=== PATIENT | male | born 1950 | race Caucasian/White ===

== ENCOUNTER 2021-02-05 16:56 | Emergency (ER) | payer BC, SELFPAY ==
--- NOTE | 2021-02-05 17:15 | ECG_ITS ---
Test Reason : REPEAT Blood Pressure : / mmHG Vent. Rate : 079 BPM Atrial Rate : 079 BPM P-R Int : 154 ms QRS Dur : 088 ms QT Int : 384 ms P-R-T Axes : 092 -02 085 degrees QTc Int : 440 ms Sinus rhythm with occasional Premature ventricular complexes and Premature atrial complexes Otherwise normal ECG When compared with ECG of 05-FEB-2021 19:51, Premature ventricular complexes are now Present Referred By: Quincy Peter Electronically Signed By:JEANIE COFFMAN MD
[2021-02-05 17:33] VITALS: BP 144/75; PULSE 58; RESP 18; O2SAT 97; BMI 21.5
[2021-02-05 18:32] LABS: MANUAL DIFF FLAG NO
[2021-02-05 18:33] LABS: Basophils Percent Auto 0.2 % (0-2); Eosinophils Percent Auto 0.1 % (0-4); Hematocrit 44.4 % (42-52); Hemoglobin 15.3 g/dl (14.0-18.0); Imm Gran Abs Auto 0.03 X10*3/uL (0.00-0.03); Imm Gran Pct Auto 0.3 % (0.0-0.4); Lymphocytes Absolute Auto 0.9 X10*3/uL (1.2-4.9); Lymphocytes Percent Auto 9.1 % (20-40); Mean Corpuscular HGB Conc 34.5 g/dl (31.0-36.0); Mean Corpuscular Hemoglobin 31.6 pg (27.0-33.0); Mean Corpuscular Volume 91.7 fL (80-98); Mean Platelet Volume 9.4 fL (9.4-12.4); Monocytes Absolute Auto 0.6 X10*3/uL (0.1-1.2); Monocytes Percent Auto 6.4 % (2-11); Neutrophils Absolute Auto 7.9 X10*3/uL (2.0-8.3); Neutrophils Percent Auto 83.9 % (45-73); Platelet Count 229 X10*3/uL (160-400); Red Blood Count 4.84 X10*6/uL (4.60-5.80); Red Cell Distribution Width 11.8 % (11.0-16.0); White Blood Count 9.4 X10*3/uL (4.8-10.8)
--- NOTE | 2021-02-05 18:38 | ED.CHESTPAIN ---
HPI - Chest Pain General Chief Complaint: Chest Pain Stated Complaint: chest pain Time Seen by Provider: 02/05/21 18:38 Source: patient Mode of arrival: ambulatory Limitations: no limitations History of Present Illness HPI narrative: Patient no significant coronary artery disease plays tennis to 3 times a week was playing tennis today since noon for 2-1/2 hours at the at the end of the game pt. noticed mid chest heaviness without any radiation no shortness of breath no palpitation pain feels like pressure Patient never had similar pain in the past. No diaphoresis no nausea no vomiting no shortness of breath no cough no abdominal pain patient continued to have cresendo-decresendo pain while at home before coming to ER Related Data Allergies Allergy/AdvReac Type Severity Reaction Status Date / Time No Known Allergies Allergy Verified 02/05/21 19:08 Review of Systems Review of Systems: Constitutional : No Weight loss, No Fever, No Chills ENT/Mouth : No sore throat, No Rhinorrhea Eyes: No Eye Pain, No Swelling Cardiovascular : ++Chest Pain, no palpitations Respiratory : No Cough, No Sputum, no shortness of breath Gastrointestinal : no Nausea, No Vomiting, No Diarrhea, No abdominal Pain, no black stools Genitourinary : No Dysuria, No Urinary Frequency Musculoskeletal : No joint pain, No Myalgias, No Joint Swelling Skin : No Skin Lesions, No rash Neuro : No Weakness, No Numbness, No Dizziness, No Headache Psych : No Anxiety/Panic, No Depression Heme/Lymph: No Bruising, No Lymphadenopathy Endocrine : No Polyuria, No Polydipsia All other systems reviewed and are negative PMFSH Social History Social History Advance Directives: No Advance Directives Information Provided: No Physical Exam Vital Signs: Vital Signs: Last Vital Signs Temp 98.4 F 02/05/21 22:24 Pulse 75 02/05/21 22:24 Resp 12 02/05/21 22:24 BP 100/73 02/05/21 22:24 Pulse Ox 97 02/05/21 22:24 Body Mass Index 21.5 Appearance: Alert. Oriented X3. No acute distress. Eyes: PERRLA, No Nystagmus ENT: Pharynx normal. Oral Mucosa moist Neck: Normal inspection. Neck supple. CVS: Normal heart rate and rhythm. Pulses normal. Respiratory: No respiratory distress. Equal air entry bilateral, no wheezing/rales/rhonchi Abdomen: Soft and nontender. Bowel sounds are present, no mass palpable, no CVA tenderness Skin: Skin warm and dry. Normal skin color. Normal skin turgor. Extremities: No lower extremity edema. No calf tenderness Neuro: Oriented X 3. MDM - Chest Pain MDM Narrative Medical decision making narrative: Patient with left-sided chest pain typical for ACS after playing tennis when patient arrived patient has pain 8/10 responded to nitroglycerin and nitropaste still feeling the pain but comfortable pain level is 2/10. Patient is on heparin drip received aspirin case discussed with Dr. Beltrán would like to keep the patient at [facility] as initial high sensitive troponin was 337 without any EKG changes. 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 Beltrán accepted the patient at [facility] for possible cardiac catheterization in a.m. patient asymptomatic for COVID PCR test was sent. Patient also had slightly elevated creatinine to 1.43 patient denies any prior history of renal insufficiency patient received 1 L of normal saline while in the ER Lab Data Attestation: I reviewed the patient's lab results. Result diagrams: 02/05/21 18:26 02/05/21 18:26 Labs: Lab Results 02/05/21 02/05/21 02/05/21 Range/Units 18:26 18:26 18:26 WBC 9.4 (4.8-10.8) X10*3/uL RBC 4.84 (4.60-5.80) X10*6/uL Hgb 15.3 (14.0-18.0) g/dl Hct 44.4 (42-52) % MCV 91.7 (80-98) fL MCH 31.6 (27.0-33.0) pg MCHC 34.5 (31.0-36.0) g/dl RDW 11.8 (11.0-16.0) % Plt Count 229 (160-400) X10*3/uL MPV 9.4 (9.4-12.4) fL Immature Gran % (Auto) 0.3 (0.0-0.4) % Neut % (Auto) 83.9 H (45-73) % Lymph % (Auto) 9.1 L (20-40) % [place] % (Auto) 6.4 (2-11) % Eos % (Auto) 0.1 (0-4) % Baso % (Auto) 0.2 (0-2) % Lymph # (Auto) 0.9 L (1.2-4.9) X10*3/uL [place] # (Auto) 0.6 (0.1-1.2) X10*3/uL Eos # (Auto) 0.0 (0.0-0.4) X10*3/uL Baso # (Auto) 0.0 (0.0-0.2) X10*3/uL Abs Immat Gran (auto) 0.03 (0.00-0.03) X10*3/uL Absolute Neuts (auto) 7.9 (2.0-8.3) X10*3/uL Absolute Nucleated RBC 0.000 (0.0-0.012) X10*3/uL Nucleated RBC % (auto) 0.0 (0.0-0.2) /100WBC PT (9.9-13.0) SEC INR (0.9-1.1) APTT (24.1-38.0) SEC Sodium 143 (135-145) mmol/L Potassium 4.9 (3.3-5.1) mmol/L Chloride 105 (96-108) mmol/L Carbon Dioxide 28 (22-29) mmol/L Anion Gap 15 (12-20) BUN 24 H (9-16) mg/dL Creatinine 1.43 H (0.5-1.4) mg/dL Estim Creat Clear Calc 47.5 Estimated GFR 49 Random Glucose 119 H (60-115) mg/dL Calcium 10.2 (8.4-10.2) mg/dL Troponin I High Sens 337.3 H* (<3.5-35.0) ng/L 02/05/21 02/05/21 Range/Units 19:45 22:13 WBC (4.8-10.8) X10*3/uL RBC (4.60-5.80) X10*6/uL Hgb (14.0-18.0) g/dl Hct (42-52) % MCV (80-98) fL MCH (27.0-33.0) pg MCHC (31.0-36.0) g/dl RDW (11.0-16.0) % Plt Count (160-400) X10*3/uL MPV (9.4-12.4) fL Immature Gran % (Auto) (0.0-0.4) % Neut % (Auto) (45-73) % Lymph % (Auto) (20-40) % [place] % (Auto) (2-11) % Eos % (Auto) (0-4) % Baso % (Auto) (0-2) % Lymph # (Auto) (1.2-4.9) X10*3/uL [place] # (Auto) (0.1-1.2) X10*3/uL Eos # (Auto) (0.0-0.4) X10*3/uL Baso # (Auto) (0.0-0.2) X10*3/uL Abs Immat Gran (auto) (0.00-0.03) X10*3/uL Absolute Neuts (auto) (2.0-8.3) X10*3/uL Absolute Nucleated RBC (0.0-0.012) X10*3/uL Nucleated RBC % (auto) (0.0-0.2) /100WBC PT 11.4 (9.9-13.0) SEC INR 1.0 (0.9-1.1) APTT 33.8 (24.1-38.0) SEC Sodium (135-145) mmol/L Potassium (3.3-5.1) mmol/L Chloride (96-108) mmol/L Carbon Dioxide (22-29) mmol/L Anion Gap (12-20) BUN (9-16) mg/dL Creatinine (0.5-1.4) mg/dL Estim Creat Clear Calc Estimated GFR Random Glucose (60-115) mg/dL Calcium (8.4-10.2) mg/dL Troponin I High Sens 6884.7 H* D (<3.5-35.0) ng/L ECG Data ECG #1: Attestation: I personally reviewed and interpreted this ECG as follows: Interpretation: Sinus rhythm heart rate 74 beats per minute with PACs normal axis no acute ST T wave changes no acute ischemia ECG #2: Attestation: I personally reviewed and interpreted this ECG as follows: Interpretation: Normal sinus rhythm heart rate 79 beats per minute poor progression of R-wave anterior leads unifocal PVCs and PACs no acute ST elevation no significant change from the previous EKG Critical Care Time Critical Care Time Critical Care Time: Yes Total Critical Care Time: 40 Attestation: I spent 40 minutes of critical care, with interventions, assessments, speaking to patient and water resource consultant Discharge Plan Discharge Clinical Impression: Non-STEMI (non-ST elevated myocardial infarction) Patient Disposition: [facility] Hospital Transfer Details: [facility] under Dr. Beltrán
[2021-02-05] MEDS: Aspirin 81 MG TAB.CHEW 324 MG PO (19:15)
[2021-02-05 19:17] LABS: Anion Gap 15 (12-20); Blood Urea Nitrogen 24 mg/dL (9-16); Calcium 10.2 mg/dL (8.4-10.2); Carbon Dioxide 28 mmol/L (22-29); Chloride 105 mmol/L (96-108); Creatinine Clr Calc Pharmacy 47.5; Estimated Glomerular Filt Rate 49; Glucose Random 119 mg/dL (60-115); Potassium 4.9 mmol/L (3.3-5.1); Sodium 143 mmol/L (135-145)
--- NOTE | 2021-02-05 19:28 | ECG_ITS ---
Test Reason : CHEST PAIN Blood Pressure : / mmHG Vent. Rate : 074 BPM Atrial Rate : 074 BPM P-R Int : 148 ms QRS Dur : 094 ms QT Int : 404 ms P-R-T Axes : 084 -02 077 degrees QTc Int : 448 ms Sinus rhythm with Premature atrial complexes Otherwise normal ECG No previous ECGs available Referred By: Quincy Peter Electronically Signed By:Jose Beltrán
[2021-02-05 19:29] LABS: Troponin-I High Sensitivity 337.3 ng/L (<3.5-35.0)
[2021-02-05] MEDS: Heparin Sodium,Porcine 5,000 UNIT/ML VIAL 5000 UNIT IVPUSH (19:30)
--- NOTE | 2021-02-05 19:47 | PC.NURSE ---
PT TO ROOM, CHG INTO GOWN, LABS DRAWN TO LAB. EKG OBTAINED TO . PT MEDICATED PER EMAR. DR. OLIVER REQUESTING PT TO GET BOLUS AT THIS TIME.
[2021-02-05] MEDS: Nitroglycerin 2 % Oint 1 GM Packet 1 INCH TRANSDERMA (19:51)
[2021-02-05 19:56] LABS: Prothrombin Time 11.4 SEC (9.9-13.0)
[2021-02-05 19:59] LABS: Partial Thromboplastin Time 33.8 SEC (24.1-38.0)
[2021-02-05 20:12] VITALS: BP 128/79; PULSE 69; RESP 22; TEMP 36.7; O2SAT 97
[2021-02-05] MEDS: Heparin Sodium,Porcine/1/2NS 25,000 UNIT/250 ML IV.SOLN 9.53 UNIT IVCONT (21:53)
[2021-02-05 21:55] VITALS: BP 137/82; PULSE 92
[2021-02-05] MEDS: Nitroglycerin 0.4 MG TAB.SUBL SUBLINGUAL (21:55)
[2021-02-05] MEDS: 0.9 % Sodium Chloride 1,000 ML 999 ML IVCONT (21:59)
[2021-02-05 22:24] VITALS: BP 100/73; PULSE 75; RESP 12; TEMP 36.9; O2SAT 97
--- NOTE | 2021-02-05 22:48 | PC.NURSE ---
REPEAT LABS DRAWN AND REPEAT EKG OBTAINED TO PT STATES MY PAIN IS BETTER . PT REMAINS ON MONITOR, VS OBTAINED. WILL CONTINUE TO MONITOR PT.
--- NOTE | 2021-02-05 22:53 | ECG_ITS ---
Test Reason : CHEST PAIN Blood Pressure : / mmHG Vent. Rate : 061 BPM Atrial Rate : 055 BPM P-R Int : 148 ms QRS Dur : 088 ms QT Int : 404 ms P-R-T Axes : 082 009 083 degrees QTc Int : 406 ms Sinus bradycardia with Premature atrial complexes Nonspecific ST and T wave abnormality Abnormal ECG When compared with ECG of 05-FEB-2021 17:01, No significant change was found Referred By: Quincy Peter Electronically Signed By:JEANIE COFFMAN MD
--- NOTE | 2021-02-05 23:52 | PC.NURSE ---
NITRO PASTE REMOVED. AWAITING FOR NITRO DRIP TO GET VERIFIED BY PHARMACY.
[2021-02-05 23:59] LABS: PTT Heparin Drip 123.6 SEC (53-77.9)
[2021-02-06 00:16] VITALS: BP 123/84; PULSE 101
[2021-02-06] MEDS: Nitroglycerin/D5W 100 MG/250 ML INFUS..BTL IVCONT (00:16)
[2021-02-06 00:22] LABS: Influenza A PCR NEGATIVE (Negative); Influenza B PCR NEGATIVE (Negative); Resp Syncy Virus RNA Qual PCR NEGATIVE (Negative); SARS COV2 PCR INHOUSE NEGATIVE (Negative)
== END 2021-02-06 00:45 | disposition short-term general hospital (02) ==
PROVIDERS: Emergency Provider Internal Medicine; PCP Internal Medicine
DX: I21.4 Non-ST elevation (NSTEMI) myocardial infarction (principal); I10 Essential (primary) hypertension; B19.20 Unspecified viral hepatitis C without hepatic coma
CPT/HCPCS: 0241U; 36415; 80048; 84484; 85025; 85610; 85730; 93005; 96365; 96366; 96367; 96375; 99285; 99291

== ENCOUNTER → 2021-02-20 13:44 | Outpatient (BNVA) | payer BC, SELFPAY | PROVIDERS: PCP Internal Medicine; Visit Provider Nurse Practitioner Family ==

== ENCOUNTER → 2021-03-07 06:02 | Outpatient (REF) | payer MEDICARE, SELFPAY ==
--- NOTE | 2021-03-07 07:30 | CA_ITS ---
Transthoracic Echocardiogram Patient (Last, First, Middle): Marcos Blancas, Gender: Male Date of : 1950 Age: 70 Procedure Date: 03/07/2021 Procedure Type: Transthoracic Echocardiogram Location: OP Height: 180.34 cm Weight: 68.04 kg BSA: 1.87 m2 Heart Rate: bpm BP: 94 / 48 mmHg Assistant Distribution Manager: RASHEEDA Referring MD: Eli Muse LACQUER DIPPING MACHINE OPERATORKe Symptoms: ASHD,NON-ST ELEVATION (NSTEMI) MD Study Quality: Good ECG Rhythm: Sinus Conclusions: - The left ventricular systolic function is low normal. The visually estimated ejection fraction is between 50-55%. - The apical lateral and mid anterolateral segments are akinetic. Findings Left Ventricle Normal left ventricular cavity size. There is normal left ventricular wall thickness. The left ventricular systolic function is low normal. The visually estimated ejection fraction is between 50-55%. Diastolic function is normal for age. Wall Motion Rest Echo Findings The apical lateral and mid anterolateral segments are akinetic. Prior Study Comparison No prior study available for comparison. Measurements 2D Linear Measurements RVIDd: 2.63 RVIDd Index: 1.41 IVSd: 0.86 0.6-0.9/0.6-1.0 cm LVIDd: 5.16 3.9-5.3/4.2-5.9 cm LVIDd Index: 2.76 2.4-3.2/2.2-3.1 cm/m2 LVIDs: 3.52 2.0-3.6 cm LVPWd: 1.03 0.7-1.1 cm LV Mass: 221.69 67-162/88-224 g LV Mass Index: 118.55 43-95/49-115 g/m2 2D Systolic Function EF 4C: 49.40 >55% EF 2C: 73.90 >55% EF BiP: 63.90 >55% Mitral Valve MV Pk E: 0.57 MV PK A: 0.36 MV Decel Time: 343.00 E/A: 1.60 E'Lateral: 16.40 E'Medial: 8.49 E/E' Med: 6.70 E/E' Lat: 3.50 Diastolic Function MV Pk E: 0.57 MV Pk A: 0.36 E/A: 1.60 E'Medial: 8.49 E/E' Med: 6.70 E' Laterial: 16.40 E/E' Lat: 3.50 Updated in Other Vendor System with Status of Final Andrews Whaley MD electronically signed on 03/07/2021 12:41:31 PM with status of Final
[2021-03-07 08:38] LABS: Alanine Aminotransferase 21 U/L (0-40); Anion Gap 13 (12-20); Aspartate Amino Transferase 21 U/L (5-37); Blood Urea Nitrogen 18 mg/dL (9-16); Carbon Dioxide 28 mmol/L (22-29); Chloride 106 mmol/L (96-108); Cholesterol 129 mg/dL; Estimated Glomerular Filt Rate 48; Glucose Random 90 mg/dL (60-115); HDL Cholesterol 52 mg/dL; LDL Cholesterol Calculated 62 mg/dl; Potassium 4.4 mmol/L (3.3-5.1); Sodium 143 mmol/L (135-145); Triglycerides 75 mg/dL
== END ==
LOC: HO.CARD 06:02
PROVIDERS: Visit Provider Nurse Practitioner Family
DX: I21.4 Non-ST elevation (NSTEMI) myocardial infarction (principal); I25.10 Atherosclerotic heart disease of native coronary artery without angina pectoris; E78.5 Hyperlipidemia, unspecified; Z95.5 Presence of coronary angioplasty implant and graft
CPT/HCPCS: 36415; 80048; 80061; 84450; 84460; 93308

== ENCOUNTER → 2021-04-06 14:26 | Outpatient (BNVA) | payer MEDICARE, SELFPAY | PROVIDERS: Visit Provider Internal Medicine Cardiovascular Disease | DX: I25.10 Atherosclerotic heart disease of native coronary artery without angina pectoris (principal); Z95.5 Presence of coronary angioplasty implant and graft | CPT/HCPCS: 99212 ==

== ENCOUNTER → 2021-08-17 09:33 | Outpatient (BNVA) | payer MEDICARE, SELFPAY | PROVIDERS: Visit Provider Internal Medicine Cardiovascular Disease | DX: I25.10 Atherosclerotic heart disease of native coronary artery without angina pectoris (principal); E78.5 Hyperlipidemia, unspecified; I25.2 Old myocardial infarction | CPT/HCPCS: 99212 ==

== ENCOUNTER → 2022-02-26 13:48 | Outpatient (BNVA) | payer MEDICARE, SELFPAY | PROVIDERS: Visit Provider Internal Medicine Cardiovascular Disease | DX: I25.10 Atherosclerotic heart disease of native coronary artery without angina pectoris (principal); I21.4 Non-ST elevation (NSTEMI) myocardial infarction; I45.19 Other right bundle-branch block; E78.5 Hyperlipidemia, unspecified; F41.9 Anxiety disorder, unspecified; Z95.5 Presence of coronary angioplasty implant and graft; Z98.890 Other specified postprocedural states | CPT/HCPCS: 93005; 99212 ==

== ENCOUNTER → 2022-09-20 10:02 | Outpatient (BNVA) | payer MEDICARE, SELFPAY | PROVIDERS: Visit Provider Internal Medicine Cardiovascular Disease | DX: I20.8 Other forms of angina pectoris (principal); L30.9 Dermatitis, unspecified; E78.5 Hyperlipidemia, unspecified | CPT/HCPCS: 93005; 99212 ==

== ENCOUNTER 2023-03-11 10:11 | Outpatient (AMB) | payer MEDICARE, SELFPAY ==
--- NOTE | 2023-03-11 10:18 | MHC.OFFVIS ---
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 He had NSTEMI and had ramus PCI previously. His ejection fraction after PCI was 35-40%. Repeat echocardiography showing EF of 50 55%. He has been on medications without any symptoms. Physically active without any exertional symptoms. He has 50% LAD and circumflex disease but has been clinically stable at this point. Blood pressure control is good. He has been exercising and walking [place] without any symptoms. No bleeding issues but has been noticing some bruising on the body.. Taking medications regularly. 03/11/2023: He returns for follow-up. He has been doing well. He has stop the ticagrelor and his bruising has improved. No chest discomfort shortness of breath. Exercising and playing tennis regularly. [facility] Medical History (Updated 09/20/22 @ 12:46 by Jose Beltrán MD) Hyperlipidemia CAD (coronary artery disease) Surgical History History of cardiac cath Family History Father CAD (coronary artery disease) Mother Heart attack Brother No problems noted. Social History Alcohol intake: former Patient Tobacco Use Status: Never used Tobacco Review of Systems Const Denies weakness ENT Denies dizziness Card Denies chest pain, Denies chest pain with activity, Denies syncope, Denies rapid heart rate, Denies pedal edema, Denies edema, Denies leg edema, Denies lightheadedness, Denies palpitations, Denies dyspnea, Denies dyspnea on exertion and Denies orthopnea Resp Denies cough, Denies dyspnea and Denies dyspnea on exertion GI Denies hematochezia and Denies change in stool character Musc Denies abnormal gait, Denies muscle cramps, Denies muscle weakness, Denies numbness, Denies radiating pain into limb and Denies tingling Neuro Denies abnormal gait, Denies dizziness, Denies syncope, Denies numbness, Denies tingling and Denies weakness Endo Denies palpitations Physical Exam Vital Signs: Last Vital Signs Pulse 75 03/11/23 10:20 BP 110/66 03/11/23 10:20 BMI result Body Mass Index 21.8 GENERAL APPEARANCE: in no acute distress, pleasant. Anxious appearing. NECK: no carotid bruit, no jugular venous distention. SKIN: no suspicious lesions, warm and dry. HEART: no murmurs, regular rate and rhythm. LUNGS: clear to auscultation bilaterally. ABDOMEN: soft, nontender. EXTREMITIES: no edema. PERIPHERAL PULSES: equal. NEUROLOGIC: No gross deficits, AAO X 3 Assessment & Plan Assessment & Plan (1) Stable angina: Code(s): I20.8 - Other forms of angina pectoris Plan Pleasant 72-year-old gentleman is here for follow-up. Previous ramus PCI with [id number] LV dysfunction which has improved to low normal 50 55% post PCI. No anginal symptoms. Taking medication regularly. I have advised him to check a fasting lipid panel. LDL cholesterol target less than 70. Thank you for allowing me to participate in the care of your patient. Please feel free to contact me if you have any questions. Orders: Orders Lipid Panel Today I20.8 - Other forms of angina pectoris Coding Level of Care Code Est Pt Level 3 (28324) Diagnoses Stable angina I20.8
[2023-03-11 10:20] VITALS: BP 110/66; PULSE 75; BMI 21.8
== END 2023-03-11 10:34 | disposition home or self-care (01) ==
PROVIDERS: Visit Provider Internal Medicine Cardiovascular Disease
DX: I20.8 Other forms of angina pectoris (principal)
CPT/HCPCS: 99213

== ENCOUNTER → 2023-03-11 10:11 | Outpatient (BNVA) | payer MEDICARE, SELFPAY | PROVIDERS: Visit Provider Internal Medicine Cardiovascular Disease | DX: I20.8 Other forms of angina pectoris (principal) | CPT/HCPCS: 99212 ==

== ENCOUNTER 2024-03-10 06:50 | Outpatient (REF) | payer MEDICARE, SELFPAY ==
[2024-03-10 08:02] LABS: Cholesterol 151 mg/dL (<200); HDL Cholesterol 54 mg/dL (>40); LDL Cholesterol Calculated 83 mg/dL (<100); Triglycerides 72 mg/dL (<150)
== END 2024-03-10 06:51 | disposition home or self-care (01) ==
LOC: HO.LAB 06:50
PROVIDERS: Visit Provider Internal Medicine Cardiovascular Disease
DX: I20.89 Other forms of angina pectoris (principal)
CPT/HCPCS: 36415; 80061

== ENCOUNTER 2024-03-16 09:53 | Outpatient (AMB) | payer MEDICARE, SELFPAY ==
--- NOTE | 2024-03-16 10:09 | MHC.OFFVIS ---
Vital Signs 03/16/24 10:10 Height 5 ft 10 in Weight 158 lb 4.67 oz BMI 22.7 BP 120/62 Blood Pressure Location Lt brachial Position Sitting Pulse 70 Pulse Source Monitor Intake Visit Reasons: 1 year fu Intake Note: 1 yr f/up Assistant To The Ce[employer] Required: No Accompanied by: Self / Same As Patient Allergies No Known Allergies Allergy (Verified 03/11/23 10:20) Medication List - Last Reconciled 03/16/24 by Jose Beltrán MD aspirin 81 mg PO DAILY atorvastatin 80 mg PO BEDTIME celecoxib 200 mg PO DAILY PRN ezetimibe 10 mg PO DAILY lisinopril 5 mg PO DAILY metoprolol succinate ER 25 mg PO DAILY mometasone 0.1% 1 appl topical DAILY HPI Comments Details: 73-year-old gentleman here for follow-up. He had NSTEMI and had ramus PCI previously. His ejection fraction after PCI was 35-40%. Repeat echocardiography showing EF of 50 55%. He has been on medications without any symptoms. Physically active without any exertional symptoms. He has 50% LAD and circumflex disease but has been clinically stable at this point. Blood pressure control is good. He has [place] symptoms. No bleeding issues but has been noticing some bruising on the body.. Taking medications regularly. 03/11/2023: He returns for follow-up. He has been doing well. He has stop the ticagrelor and his bruising has improved. No chest discomfort shortness of breath. Exercising and playing tennis regularly. 03/16/24: He is here for follow-up. He had fasting lipid panel which showed total cholesterol 151, LDL 83, HDL 54 and triglycerides 72. He was started on ezetimibe after this and he has been taking that regularly. He continues to play tennis and exercise and has no exertional complaints. [facility] Medical History (Updated 09/20/22 @ 12:46 by Jose Beltrán MD) Hyperlipidemia CAD (coronary artery disease) Surgical History History of cardiac cath Family History Father CAD (coronary artery disease) Mother Heart attack Brother No problems noted. Social History Alcohol intake: former Patient Tobacco Use Status: Never used Tobacco Review of Systems Const Denies chills, Denies fatigue, Denies fever(s), Denies frequent falls, Denies weakness, Denies weight gain and Denies weight loss ENT Denies dizziness Card Denies chest pain, Denies leg edema, Denies lightheadedness, Denies palpitations, Denies dyspnea and Denies dyspnea on exertion Resp Denies cough, Denies dyspnea and Denies dyspnea on exertion GI Denies hematochezia Musc Denies abnormal gait, Denies muscle weakness, Denies numbness, Denies radiating pain into limb and Denies tingling Neuro Denies abnormal gait, Denies dizziness, Denies frequent falls, Denies numbness, Denies tingling and Denies weakness Endo Denies fatigue and Denies palpitations Physical Exam Vital Signs: Last Vital Signs Pulse 70 03/16/24 10:10 BP 120/62 03/16/24 10:10 BMI result Body Mass Index 22.7 GENERAL APPEARANCE: in no acute distress, pleasant. Anxious appearing. NECK: no carotid bruit, no jugular venous distention. SKIN: no suspicious lesions, warm and dry. HEART: no murmurs, regular rate and rhythm. LUNGS: clear to auscultation bilaterally. ABDOMEN: soft, nontender. EXTREMITIES: no edema. PERIPHERAL PULSES: equal. NEUROLOGIC: No gross deficits, AAO X 3 Office Procedures EKG Details: Sinus rhythm 70 beats per minute, normal axis, QTC 425 milliseconds. [id number], Complete Assessment & Plan Assessment & Plan (1) Stable angina: Code(s): I20.8 - Other forms of angina pectoris Category: Medical (2) Hyperlipidemia: Code(s): E78.5 - Hyperlipidemia, unspecified Category: Medical Plan Pleasant 73 year gentleman who is here for follow-up. He has known history of ramus PCI in the setting of NSTEMI. He had [id number] LV dysfunction which improved to 50 55% after PCI. Clinically he has been doing well and has no anginal symptoms or symptoms of heart failure. Physically active and has no exertional complaints. Blood pressure well controlled. LDL is 83 on recent cholesterol testing. He was started on ezetimibe 10 mg daily along with atorvastatin 80 mg daily. We will repeat fasting lipid panel in 6-8 weeks. Thank you for allowing me to participate in the care of your patient. Please feel free to contact me if you have any questions. Orders: Orders Lipid Panel Today I20.8 - Other forms of angina pectoris Coding Level of Care Code Est Pt Level 4 (94516) Diagnoses Stable angina I20.8 Hyperlipidemia E78.5 CPT Codes EKG - CPT: 77259-[id number], Complete ([id number])
[2024-03-16 10:10] VITALS: BP 120/62; PULSE 70; BMI 22.7
== END 2024-03-16 10:54 | disposition home or self-care (01) ==
PROVIDERS: Visit Provider Internal Medicine Cardiovascular Disease
DX: I20.89 Other forms of angina pectoris (principal); E78.5 Hyperlipidemia, unspecified
CPT/HCPCS: 93010; 99214

== ENCOUNTER → 2024-03-16 09:53 | Outpatient (BNVA) | payer MEDICARE, SELFPAY | PROVIDERS: Visit Provider Internal Medicine Cardiovascular Disease | DX: I25.118 Atherosclerotic heart disease of native coronary artery with other forms of angina pectoris (principal); E78.5 Hyperlipidemia, unspecified | CPT/HCPCS: 93005; 99212 ==

== ENCOUNTER → 2024-04-06 10:06 | Outpatient (BNVA) | payer MEDICARE, SELFPAY | PROVIDERS: Visit Provider Internal Medicine Cardiovascular Disease ==

== ENCOUNTER 2025-03-23 09:48 | Outpatient (AMB) | payer MEDICARE, SELFPAY ==
[2025-03-23 10:16] VITALS: BP 108/50; PULSE 65; BMI 22.5
--- NOTE | 2025-03-23 10:16 | A.OFFVIS_ITS ---
Vital Signs 03/23/25 10:16 Height 5 ft 10 in Weight 156 lb 15.506 oz BMI 22.5 BP 108/50 L Blood Pressure Location Lt brachial Pulse 65 Pulse Source Monitor Intake Visit Reasons: r/s km-1 year follow-up with ekg Accompanied by: Self / Same As Patient Allergies No Known Allergies Allergy (Verified 03/23/25 10:18) Medication List - Last Reconciled 03/23/25 by GILDA Hamilton aspirin 81 mg PO DAILY atorvastatin 80 mg PO BEDTIME ezetimibe 10 mg PO DAILY lisinopril 5 mg PO DAILY metoprolol succinate ER 25 mg PO DAILY mometasone 0.1% 1 appl topical DAILY HPI HPI r/s km-1 year follow-up with ekg: Details: Marcos is a 74-year-old male with past medical history of hyperlipidemia, CAD with NSTEMI 01/2021 with stent placed to the ramus, ischemic cardiomyopathy with improvement in EF on repeat echocardiogram who now presents for follow-up. Today he reports he has been doing very well since his last visit 03/16/2024. He has not had any cardiac symptoms or concerns. He denies chest discomfort, heart palpitations, shortness of breath, leg edema. He is very active and plays tennis routinely. He walks 4.5 miles around the rest for every other day. He is taking all meds as directed. He does not have a PCP. [facility] Medical History (Updated 09/20/22 @ 12:46 by Jose Beltrán MD) Hyperlipidemia CAD (coronary artery disease) Surgical History History of cardiac cath Family History Father CAD (coronary artery disease) Mother Heart attack Brother No problems noted. Social History Alcohol intake: former Patient Tobacco Use Status: Never used Tobacco Review of Systems Const All systems reviewed & are unremarkable except as noted in HPI and below Denies daytime sleepiness, Denies difficulty sleeping, Denies snoring, Denies stops breathing during sleep and Denies weakness Card Denies chest pain, Denies rapid heart rate, Denies irregular heart rhythm, Denies claudication, Denies leg edema, Denies lightheadedness, Denies palpitations, Denies dyspnea, Denies dyspnea on exertion, Denies orthopnea, Denies paroxysmal nocturnal dyspnea and Denies slow heart rate Resp Denies cough, Denies dyspnea, Denies dyspnea on exertion and Denies snoring GI Reports no additional complaints, Denies hematochezia, Denies change in stool character and Denies dyspepsia Musc Denies abnormal gait, Denies muscle weakness and Denies numbness Neuro Denies abnormal gait, Denies numbness and Denies weakness Endo Denies palpitations Physical Exam Vital Signs: Last Vital Signs Pulse 65 03/23/25 10:16 BP 108/50 L 03/23/25 10:16 BMI result Body Mass Index 22.5 Const General: cooperative, healthy appearing, comfortable and no acute distress Orientation/consciousness: patient oriented x3 Neck Neck: Yes normal visual inspection and Yes no JVD Carotids: normal carotid upstroke Resp Effort & Inspection: normal respiratory effort Auscultation: clear to auscultation bilaterally, no crackles, no rales, no rhonchi and no wheezes Cardio Jugular venous distension: no JVD Rate: regular rate Rhythm: regular rhythm Heart sounds: S1 normal heart sound present, S2 normal heart sound present, no gallops, no murmurs and no rubs Neuro General: patient oriented x3 Extrem General: Yes normal to inspection, No no pedal edema and No calf tenderness Psych Appearance: grossly normal Mental Status: mental status grossly normal Speech and movement: Normal speech and movement present Office Procedures EKG Details: today, read by me, normal sinus rhythm with nonspecific ST/ T wave abn, rate 65, Qtc 420ms [id number], Complete Assessment & Plan Assessment & Plan (1) CAD (coronary artery disease): Code(s): I25.10 - Atherosclerotic heart disease of [place] coronary artery without angina pectoris Category: Medical Plan: CAD with NSTEMI 8 03/2021. Cardiac catheterization showed thrombus in the large ramus, SILVESTRE was placed. Echocardiogram initially showed EF 35-40%. Follow-up echo done 03/07/2021 showed EF 50-55%, apical lateral and mid anterior lateral akinetic. He has done well since that time and has no anginal symptoms. Continue aspirin indefinitely. Continue atorvastatin and Zetia with LDL goal less than 70. Continue lisinopril and metoprolol. Signs and symptoms of angina reviewed with him. Cardiology follow-up 1 year, sooner if needed. (2) Stented coronary artery: Comment: SILVESTRE to Ramus 02/06/21 Code(s): Z95.5 - Presence of coronary angioplasty implant and graft Category: Surgical (3) History of cardiac cath: Comment: 02/06/21 culprit lesion: Ramus - thrombotic 99% lesion, very large territory supplying anterolateral wall. SILVESTRE and ballooned angioplasty with excellent angiographic results. Mid LAD 50% stenosis, Prox LCx 60% stenosis, mid RCA 20% stenosis Code(s): Z98.890 - Other specified postprocedural states Category: Surgical (4) Hyperlipidemia: Code(s): E78.5 - Hyperlipidemia, unspecified Category: Medical Plan: [place] LDL goal less than 70. Labs done 03/10/2024 showed LDL 83. He is due for updated labs. Will order updated labs including CBC, CMP and lipids. Continue atorvastatin and Zetia. Plan I discussed with the patient the importance of continuing his current medications for heart, blood pressure and cholesterol management and the need for routine blood work to monitor his overall health. We reviewed his current symptoms and determined that no further cardiac testing is necessary at this time due to the absence of concerning symptoms and normal previous evaluations. Orders: Orders Complete Blood Count Auto Diff Today E78.5 - Hyperlipidemia, unspecified, I25.10 - Atherosclerotic heart disease of [place] coronary artery without angina pectoris Comprehensive [place]. Panel Fast Today E78.5 - Hyperlipidemia, unspecified, I25.10 - Atherosclerotic heart disease of [place] coronary artery without angina pectoris Lipid Panel Today E78.5 - Hyperlipidemia, unspecified, I25.10 - Atherosclerotic heart disease of [place] coronary artery without angina pectoris Patient Instructions: - Continue taking prescribed medications: aspirin, atorvastatin, Zetia, lisinopril, and metoprolol. - Schedule routine blood work and ensure fasting before the test. - Maintain current exercise routine and report any new symptoms. Patient was informed and verbally consented to the use of an ambient scribe for clinic note documentation during this visit. Visit time spent on chart review, interview, assessment, orders, documentation. Coding Level of Care Code Est Pt Level 4 (37907) Complex EM visit Add On G2211 Diagnoses CAD (coronary artery disease) I25.10 Stented coronary artery Z95.5 History of cardiac cath Z98.890 Hyperlipidemia E78.5 CPT Codes EKG - CPT: 86264-[id number], Complete ([id number]) Time Spent (min) 30
== END 2025-03-23 10:55 | disposition home or self-care (01) ==
LOC: HO.HCS 09:48
PROVIDERS: Visit Provider Nurse Practitioner Family
DX: I25.10 Atherosclerotic heart disease of native coronary artery without angina pectoris (principal); Z95.5 Presence of coronary angioplasty implant and graft; Z98.890 Other specified postprocedural states; E78.5 Hyperlipidemia, unspecified
CPT/HCPCS: 93010; 99214; G2211

== ENCOUNTER → 2025-03-23 09:48 | Outpatient (BNVA) | payer MEDICARE, SELFPAY | PROVIDERS: Visit Provider Nurse Practitioner Family | DX: I25.10 Atherosclerotic heart disease of native coronary artery without angina pectoris (principal); E78.5 Hyperlipidemia, unspecified; Z95.5 Presence of coronary angioplasty implant and graft; Z98.890 Other specified postprocedural states; R94.31 Abnormal electrocardiogram [ECG] [EKG] | CPT/HCPCS: 93005; 99212 ==